=== PATIENT | male | born 1965 | race Caucasian/White ===

== ENCOUNTER → 2023-11-12 11:53 | Outpatient (REF) | payer OTHER, SELFPAY | LOC: MRI 3T 11:53 | PROVIDERS: ATTENDING PHYSICIAN Surgery; FAMILY PHYSICIAN Family Medicine | DX: R97.20 Elevated prostate specific antigen [PSA] (principal) | CPT/HCPCS: 72197; A9575 ==

== ENCOUNTER → 2024-05-26 07:52 | Outpatient (REF) | payer OTHER, SELFPAY | LOC: MRI 3T 07:52 | PROVIDERS: ATTENDING PHYSICIAN Surgery; FAMILY PHYSICIAN Family Medicine | DX: R97.20 Elevated prostate specific antigen [PSA] (principal) | CPT/HCPCS: 72197; A9575 ==

== ENCOUNTER 2024-06-16 02:38 | Emergency (ER) | payer OTHER, SELFPAY ==
[2024-06-16 02:54] VITALS: BP 171/91
[2024-06-16 03:22] LABS: % Basophils 0.5 % (0-2); % Eosinophils 2.2 % (0-6); % Immature Granulocytes 0.5 % (0-0.5); % Lymphocytes 22.6 % (20.5-51.1); % Monocytes 9.1 % (1.7-9.3); % Neutrophils 65.1 % (42.2-75.2); Absolute Eosinophils 0.2 10^3/uL (0-0.7); Absolute Monocytes 0.8 10^3/uL (0.1-0.6); Absolute Neutrophils 5.8 10^3/uL (1.4-6.5); Hematocrit 41.8 % (39.0-52.0); Hemoglobin 14.1 g/dL (13.0-18.0); Mean Corp Hgb Conc. 33.7 g/dL (33.0-37.0); Mean Corpuscular Hgb 28.6 pg (27.0-31.0); Mean Corpuscular Volume 84.8 fL (80.0-94.0); Mean Platelet Volume 11.2 fL (7.4-10.4); Nucleated Red Blood Cells % 0 % (-); Platelet Count 212 10^3/uL (130-400); Red Blood Cell Count 4.93 10^6/uL (4.70-6.10); Red Cell Dist. Width 12.6 % (11.5-14.5); White Blood Cell Count 8.8 10^3/uL (4.8-10.8)
[2024-06-16 03:34] LABS: ALT (SGPT) 30 U/L (0-50); AST (SGOT) 23 U/L (17-59); Albumin 4.4 g/dl (3.5-5.0); Alkaline Phosphatase 50 U/L (38-126); Blood Urea Nitrogen 29 mg/dl (9-20); Carbon Dioxide 27 mmol/L (22-30); Chloride 104 mmol/L (98-107); Glucose 138 mg/dl (70-99); Lipase 162 U/L (23-300); Potassium 4.1 mmol/L (3.5-5.1); Sodium 141 mmol/L (135-145); Total Bilirubin 0.2 mg/dl (0.2-1.3); Total Protein 7.2 g/dl (6.3-8.2); eGFR > 60.00
--- NOTE | 2024-06-16 04:05 | ED.GENMED ---
History of Present Illness
<VIANEY Rodriguez - Last Filed: 06/16/24 06:40>
General
Chief Complaint: Abdominal Pain
Source: patient
Exam Limitations: none
Time Seen by Provider: 06/16/24 03:53
Nursing documentation reviewed up to this point in time: agreed with
History of Present Illness
History of Present Illness:
Patient is a 59yo M w/ PMH of biliary colic and nephrolithiasis who presents to the ED w/ upper abdominal pain x10hrs. He admits to eating greasy food that is not his usual diet about an hour before pain started. States pain is similar but less
severe than previous biliary attack. Pt states he thought pain was gas or indigestion originally and tried taking antacids and pepto w/o relief. Pain is constant, sharp, and 8/10. Located in RUQ radiating towards center. Denies N/V, chest pain, and
SOB.
Past History
<VIANEY Rodriguez - Last Filed: 06/16/24 06:40>
Past History
ED Past Medical History: None
ED Past Surgical History: Orthopedic (Cervical laminectomy C3-C6)
Social History
Tobacco: Non-smoker
Alcohol: None
Drug: None and Other (Denies IV drug abuse)
Personal:
Living: with family
Employment: Employed
Review of Systems
<VIANEY Rodriguez - Last Filed: 06/16/24 06:40>
Review of Systems
Constitutional: Denies fever, fatigue or chills
Respiratory: Denies cough or trouble breathing
Cardiac: Denies chest pain or palpitations
ABD/GI: Reports abdominal pain; Denies nausea, vomiting, diarrhea or constipated
: Denies dysuria
Musculoskeletal: Denies joint pain, muscle pain, neck pain or back pain
Neurological: Denies headache, weakness or numbness
Phy Exam
<Amina Adair [facility] - Last Filed: 06/16/24 06:40>
General Physical Exam
General Presentation: severe distress
General age: appears stated age
General Skin: warm and dry
General Habitus: obese
General Mental: alert
Cardiovascular Exam
Cardiovascular Exam: regular rate/rhythm, no edema, no gallop and no murmur
Pulmonary Exam
Pulmonary Exam: lungs clear and no respiratory distress
Gastrointestinal Exam
Gastrointestinal Exam: normal bowel sounds, soft, non distended and other (positive Reed's sign )
Palpation: right upper quadrant: Moderate tenderness
Neurological Exam
Neurological Exam: alert, oriented x3, no motor deficits, no sensory deficits and speech normal
Course
<Amina Adair [facility] - Last Filed: 06/16/24 06:40>
Orders/Labs/Results
Orders:
Orders
06/16/24 02:43
EKG [Electrocardiogram (*1)] Urgent
Reason for Study: Abdominal Pain
EKG- Treatment ONCE
06/16/24 02:50
IV Insert/Care/Rem.- Treatment PRN
06/16/24 02:51
US Abdomen Complete/Upper Urgent
Comment:
Reason For Exam: upper abdominal pain, r/o cholecystitis
06/16/24 03:03
Complete Blood Count/With Diff Urgent
Comprehensive Metabolic Panel Urgent
Lipase Urgent
06/16/24 05:29
0.9% Sodium Chloride 1000 ml [Nss] 1,000 ml IV BOLUS
Abnormal Lab Results
06/16/24
03:03
MPV 11.2 H fL
(7.4-10.4)
Absolute Monos (auto) 0.8 H 10^3/uL
(0.1-0.6)
BUN 29 H mg/dl
(20)
Glucose 138 H mg/dl
(70-99)
06/16/24 03:03
06/16/24 03:03
Vital Signs
Initial and Last Documented VS:
Initial Vital Signs
Pulse Resp Pulse Ox
55 22 98
06/16/24 02:40 06/16/24 02:40 06/16/24 02:40
Last Documented Vital Signs
Temp Pulse Resp BP Pulse Ox
98 F 55 22 171/91 98
06/16/24 02:54 06/16/24 02:40 06/16/24 02:40 06/16/24 02:54 06/16/24 02:40
<Galo Shane, DO - Last Filed: 06/16/24 06:01>
Orders/Labs/Results
Orders:
Orders
06/16/24 02:43
EKG [Electrocardiogram (*1)] Urgent
Reason for Study: Abdominal Pain
EKG- Treatment ONCE
06/16/24 02:50
IV Insert/Care/Rem.- Treatment PRN
06/16/24 02:51
US Abdomen Complete/Upper Urgent
Comment:
Reason For Exam: upper abdominal pain, r/o cholecystitis
06/16/24 03:03
Complete Blood Count/With Diff Urgent
Comprehensive Metabolic Panel Urgent
Lipase Urgent
06/16/24 05:29
0.9% Sodium Chloride 1000 ml [Nss] 1,000 ml IV BOLUS
Abnormal Lab Results
06/16/24
03:03
MPV 11.2 H fL
(7.4-10.4)
Absolute Monos (auto) 0.8 H 10^3/uL
(0.1-0.6)
BUN 29 H mg/dl
(920)
Glucose 138 H mg/dl
(70-99)
06/16/24 03:03
06/16/24 03:03
Vital Signs
Initial and Last Documented VS:
Initial Vital Signs
Pulse Resp Pulse Ox
55 22 98
06/16/24 02:40 06/16/24 02:40 06/16/24 02:40
Last Documented Vital Signs
Temp Pulse Resp BP Pulse Ox
98 F 55 22 171/91 98
06/16/24 02:54 06/16/24 02:40 06/16/24 02:40 06/16/24 02:54 06/16/24 02:40
<VIANEY Rodriguez - Last Filed: 06/16/24 06:40>
MDM/Problems Addressed
Differential Diagnosis Includes:
biliary colic, cholecystitis, pancreatitis
<VIANEY Rodriguez - Last Filed: 06/16/24 06:40>
*Critical Care Note
Total Time (30-74mins, 75-104mins- exclusive of procedures): Not Applicable
<Galo Shane DO - Last Filed: 06/16/24 06:01>
Update Note
Update Note:
ULTRASOUND ABDOMEN COMPLETE
COMPARISON: None
IMPRESSION:
Multiple gallstones in the gallbladder. No gallbladder wall thickening to indicate acute cholecystitis.
Sonographic Reed's sign could not be assessed because the patient received pain medication prior to ultrasound.
Common bile duct not well visualized.
Limited view of the pancreas is unremarkable.
Liver echogenicity and echotexture are normal.
Possible 9mm stone in the interpolar right kidney. No hydronephrosis on either side. Left kidney simple cyst.
The abdominal aorta not visualized due to overlying bowel gas.
Spleen is unremarkable.
ED Attending Note
<VIANEY Rodriguez - Last Filed: 06/16/24 06:40>
-
Portions of this chart may have been created with voice recognition software.� Occasional wrong word or��sound alike� substitutions may have occurred due to the inherent limitations of voice recognition software.
<Galo Shane DO - Last Filed: 06/16/24 06:01>
ED Attending Note
Patient seen and examined by attending physician: Yes
I performed the substantive portion of visit, reviewed & personally made and approve the management plan that is documented in note by myself or ROSSANA.: Yes
ED Attending Note:
59-year-old male presents emergency department with right upper quadrant abdominal pain. He states today he was watching the football game and ate some fried/fatty foods. He states he normally does not eat unhealthy. He does have a history of
biliary colic. Patient states that this pain is reminiscent of previous gallbladder attacks. Denies chest pain or shortness of breath. At time of my exam, patient states that pain subsided. Patient was seen in conjunction with the PA student. I
have reviewed and agree with the history and treatment plan presented. On my independent physical exam, patient is awake, alert, and oriented x3 no acute distress. Resting comfortably. No Reed sign. No respiratory distress. Skin is warm and
dry. Moves all 4 extremities. Mentating appropriately.
Discharge Plan
Departure
Patient Disposition: Home (Routine Discharge)
Date of Disposition: 06/16/24
Time of Disposition: 06:03
Patient with high blood pressure during this ER visit?: Yes
Condition: Good
Discharge Problem:
Gallstones, Biliary colic
Instructions: Gallstones (DC), BLOOD PRESSURE
Prescriptions:
No Action
cabergoline 0.5 MG tablet
0.5 mg PO .WEEKLY ON SUN
tamsulosin 0.4 MG capsule
0.4 mg PO DAILY Qty: 7 0RF
ibuprofen 600 MG tablet
600 mg PO Q6 Qty: 20 0RF
hydrocodone-acetaminophen 1 TABLET tablet
1 tab PO Q4HPRN PRN (Reason: Pain) Qty: 8 0RF
naproxen sodium 220 MG capsule
220 mg PO BID Qty: 20 0RF
prednisone 10 MG tablet
10 mg PO DAILY Qty: 43 0RF
Rx Instructions:
60mg qd x 2, 50mg qd x 2, 40mg qd x 2, 30mg qd x 2, 20mg qd x 2, 10mg qd x 2, 5mg qd x 2
Referrals:
Josias Spear, DO [Family Provider] -
Activity Restrictions/Additional Instructions:
It was a pleasure meeting you and taking part in your care. We hope for your continued healing and wellness.
Please read discharge instructions in their entirety. However, they are for general education and may not describe your exact diagnosis at discharge. Information on your ER visit and medical conditions were discussed with you along with appropriate
follow up information...
If indicated, please take your medications as instructed and indicated on discharge paperwork.
Please schedule a follow up appointment as directed. Call to schedule an appointment
Please return to the emergency department with ANY change in, persisting, or worsening of symptoms. If any of your symptoms do not improve, or persist, or become more severe within 6-12 hours, please return to the emergency department for further
care.
Please return to the emergency department if you develop a headache, neck pain/stiffness, fever greater than 100.4F, chest pain, shortness of breath, persistent nausea, vomiting, slurred speech, difficulty walking, numbness/tingling, weakness, signs
of infection or any other symptoms that are worrisome to you.
If you have any questions or concerns please do not hesitate to call the Hospital at or E-mail me directly at [email or web address]
Interventions
Interventions:
*Risk Screen - Suicide Last Done: 06/16/24 02:40
*General Assessment Last Done: 06/16/24 02:40
*Neglect/Abuse Screening Last Done: 06/16/24 02:40
ED- Fall Risk Assessment Last Done: 06/16/24 05:00
*ED COVID-19 Vaccine History Last Done: 06/16/24 06:33
*Nursing Disposition Last Done: 06/16/24 06:33
FQ-Ejjree-Czztediomv Assessment Last Done: 06/16/24 05:00
Discharge Date and Time
Discharge Date/Time: 06/16/24 06:34
Print Language: [id number]
== END 2024-06-16 06:34 | disposition home or self-care (01) ==
LOC: EMR 02:38
PROVIDERS: EMERGENCY PHYSICIAN Student in an Organized Health Care Education/Training Program; FAMILY PHYSICIAN Family Medicine
DX: K80.70 Calculus of gallbladder and bile duct without cholecystitis without obstruction (principal); Z87.442 Personal history of urinary calculi
CPT/HCPCS: 99284; 76700; 80053; 83690; 85025; 93005

== ENCOUNTER → 2025-03-23 12:18 | Outpatient (REF) | payer OTHER, SELFPAY | LOC: RAD 12:18 | PROVIDERS: ATTENDING PHYSICIAN Surgery; FAMILY PHYSICIAN Family Medicine | DX: R10.9 Unspecified abdominal pain (principal); N23 Unspecified renal colic | CPT/HCPCS: 74177; Q9967 ==